=== PATIENT | male | born 1990 | race Native Hawaiian/Other Pacific Islander ===

== ENCOUNTER 2021-05-13 01:12 | Emergency (ER) | payer OTHER | END 2021-05-13 01:46 | disposition home or self-care (01) | LOC: ED 01:12 | DX: F22 Delusional disorders (principal); F19.10 Other psychoactive substance abuse, uncomplicated | CPT/HCPCS: 99281 ==

== ENCOUNTER 2021-05-13 16:37 | Emergency (ER) | payer OTHER ==
[~2021-05-13] VITALS: Ht 177.8 cm; Wt 77.1 kg
[2021-05-13 17:05] VITALS: BP 126/84; TEMP 97.8
[2021-05-13 17:46] LABS: PLATELET COUNT 317 K/uL (142-355)
[2021-05-13 17:57] LABS: POTASSIUM 4.2 mmol/L (3.6-5.2)
== END 2021-05-13 18:20 | disposition home or self-care (01) ==
LOC: ED 16:37
PROVIDERS: Emergency Medicine
DX: F22 Delusional disorders (principal); F19.10 Other psychoactive substance abuse, uncomplicated
CPT/HCPCS: 80053; 80320; 80329; 85027; 93005; 99285

== ENCOUNTER 2021-05-15 02:47 | Emergency (ER) | payer OTHER ==
[~2021-05-15] VITALS: Ht 177.8 cm; Wt 77.1 kg
[2021-05-15 03:17] LABS: PLATELET COUNT 309 K/uL (142-355)
[2021-05-16 11:25] VITALS: BP 142/96; TEMP 97.9
== END 2021-05-16 11:25 | disposition still patient (30) ==
LOC: ED 02:47
PROVIDERS: Emergency Medicine Emergency Medical Services
DX: R46.89 Other symptoms and signs involving appearance and behavior (principal); F12.90 Cannabis use, unspecified, uncomplicated; F15.90 Other stimulant use, unspecified, uncomplicated; Z20.822 Contact with and (suspected) exposure to COVID-19
CPT/HCPCS: 36415; 80053; 80307; 80320; 80329; 81000; 82550; 85027; 87635; 96360; 96375; 99285; J1200; U0003

== ENCOUNTER 2021-06-07 06:56 | Emergency (ER) | payer OTHER ==
[~2021-06-07] VITALS: Ht 177.8 cm; Wt 54.4 kg
[2021-06-07 06:56] VITALS: TEMP 98.7
[2021-06-07 07:31] LABS: PLATELET COUNT 274 K/uL (142-355)
[2021-06-07 07:47] LABS: POTASSIUM 3.6 mmol/L (3.6-5.2)
[2021-06-07 07:58] LABS: PARTIAL THROMBOPLASTIN TIME 24.7 SECONDS (24.5-33.6)
[2021-06-07 08:49] VITALS: BP 138/100
== END 2021-06-07 09:00 | disposition short-term general hospital (02) ==
LOC: ED 06:56
PROVIDERS: Hospitalist
DX: S02.19XA Other fracture of base of skull, initial encounter for closed fracture (principal); S02.11HA Other fracture of occiput, left side, initial encounter for closed fracture; S06.4X0A Epidural hemorrhage without loss of consciousness, initial encounter; S06.6X0A Traumatic subarachnoid hemorrhage without loss of consciousness, initial encounter; Y00.XXXA Assault by blunt object, initial encounter; Y92.89 Other specified places as the place of occurrence of the external cause; Z11.52 Encounter for screening for COVID-19
CPT/HCPCS: 80048; 80320; 85027; 85610; 85730; 87635; 90471; 90715; 96365; 96366; 99285; J0690; J3411; J3475; J3490; U0003

== ENCOUNTER 2022-12-09 15:37 | Emergency (ER) | payer OTHER ==
[~2022-12-09] VITALS: Ht 177.8 cm; Wt 83.9 kg
[2022-12-09 15:46] VITALS: TEMP 99.3
[2022-12-09 16:08] LABS: PLATELET COUNT 293 K/uL (142-355)
[2022-12-09 16:15] LABS: POTASSIUM 4.3 mmol/L (3.6-5.2); SODIUM 131 mmol/L (136-145)
[2022-12-10 09:09] LABS: PLATELET COUNT 290 K/uL (142-355)
[2022-12-10 09:10] LABS: POTASSIUM 4.8 mmol/L (3.6-5.2)
[2022-12-10 09:25] VITALS: BP 147/90
== END 2022-12-10 14:10 | disposition short-term general hospital (02) ==
LOC: ED 15:37
PROVIDERS: Emergency Medicine; Internal Medicine
DX: F22 Delusional disorders (principal); M79.672 Pain in left foot; M79.671 Pain in right foot
CPT/HCPCS: 80053; 80143; 80179; 80307; 80320; 81002; 83605; 85027; 87040; 96372; 99285; J0696